=== PATIENT | male | born 1970 | race Caucasian/White ===

== ENCOUNTER 2019-07-12 08:05 | Emergency (ER) | payer OTHER, SELFPAY ==
[2019-07-12 08:07] VITALS: BP 156/89; PULSE 107; RESP 17; TEMP 36.7; O2SAT 100; BMI 28.7
[2019-07-12 08:14] VITALS: BP 132/88; PULSE 100; RESP 18; O2SAT 100
--- NOTE | 2019-07-12 08:24 | EKG12_ITS ---
Test Reason : PALPS/SOB Blood Pressure : / mmHG Vent. Rate : 093 BPM Atrial Rate : 093 BPM P-R Int : 158 ms QRS Dur : 094 ms QT Int : 348 ms P-R-T Axes : 022 037 018 degrees QTc Int : 432 ms Normal sinus rhythm Normal ECG Confirmed by RASHI MEDINA MD ([id number]), art editor CHRISTOPHE VALDEZ ([id number] on 07/13/2019 1:38:06 PM Referred By: RACHID Confirmed By:RASHI MEDINA MD
--- NOTE | 2019-07-12 08:25 | ED.VIS.GEN ---
History of Present Illness Chief Complaint: Palpitations Informant: Patient Onset: Today Context: Sudden Onset Timing: Intermittent Narrative: Patient is a 49-year-old male with no significant past medical history presenting with palpitations. Patient states he was at a job site walking up 3 flights of stairs when he suddenly felt his heart was racing. He denies any associated nausea, diaphoresis or shortness of breath. He denies any associated chest pain. The symptoms did not ease so patient sided drive home. While he was driving he started having palpitations again. This concerned him so he came to the emergency room. He notes the palpitations worsen with exertion and seem to worsen when he was walking from the parking lot to the ER as well. They currently have subsided. Patient notes that he has had intermittent palpitations over the past year. Is been managed by cutting out his caffeine intake. Patient not heavy caffeine last night. He does have a family history of coronary artery disease but he denies any personal history. He denies any history of hypertension or arrhythmia. He states he saw his primary care doctor a year ago and had blood work was told everything was normal. Patient does smoke a pack and 1/2 to 2 packs of cigarettes per day. He drinks 5-6 light beers a day. He said no recent change in any of this. He denies any fever, chills or any other associated symptoms. Prior similar symptoms: Yes Past Medical History - Allergies and Home Meds Allergies/Adverse Reactions: Allergies cephalexin [From Keflex] Allergy (Verified 07/12/19 08:07) Anaphylaxis Primary Care Physician: Luis A Onofre MD [STAFF PHYSICIAN] - Lexis Velasquez MD [[facility]] - Past Medical History: None Surgical History: noncontributory Smoking Status: Current every day smoker Alcohol: Heavy - 5-6 beers a day Drugs: None Review of Systems General: Denies: Chills, Fever, Sweats Eyes: Denies: Visual changes - bilaterally, Diplopia ENT: Denies: Rhinorrhea, Sore throat Cardiovascular: Reports: Palpitations, Heart racing. Denies: Chest pain Respiratory: Denies: Dyspnea, Cough, Dyspnea on exertion Gastrointestinal: Denies: Abdominal pain, Nausea, Vomiting, Diarrhea, Melena, Hematochezia Genitourinary: Denies: Dysuria, Hematuria, Frequency Musculoskeletal: Denies: Back pain, Extremity Pain Skin: Denies: Rash, Wounds Neurological: Denies: Headache, Weakness, Numbness Physical Exam Vital Signs/Narrative: Vital Signs Temp Pulse Resp BP Pulse Ox 07/12/19 08:14 100 18 132/88 H 100 07/12/19 08:07 98.1 F 107 H 17 156/89 H 100 Inital Vital Signs reviewed: Yes General: Well nourished, Well developed, No Acute Distress Head: Normocephalic, Atraumatic Eyes: Perrl, EOMI ENT: Moist mucous membranes, No rhinorrhea Neck: Supple, Nontender, No JVD Cardiovascular: Regular rhythm, No murmurs, Tachycardia Respiratory: No distress, CTA bilaterally, Chest nontender Abdomen: Soft, Nontender, Nondistended, Normal bowel sounds Back: Nontender, Normal Inspection Extremities: Nontender, No edema Skin: Normal color, No rash Neurological: Alert, Oriented x3, Cranial nerves II-XII grossly intact, Normal Strength, Normal Sensation Psychological: Normal affect, Normal Mood Diagnostic/Tx/Re-eval Chest X-Ray - ED: 2 View, Read by ED Physician, Read by Radiologist, No Acute Disease Clinical Impression(s) from Imaging Studies Chest X-Ray 07/12/19 08:35 IMPRESSION: Normal x-ray examination of the chest. Electronically Signed: Justin Arana, at 8:48 EDT , Service support , Laboratory Data 07/12/19 07/12/19 07/12/19 08:20 08:20 08:20 WBC 12.0 H RBC 4.75 Hgb 15.6 Hct 44.9 MCV 94.5 H MCH 32.8 H MCHC 34.7 RDW Std Deviation 43.9 RDW Coeff of Hazel 12.7 Plt Count 221 MPV 9.4 Immature Gran % (Auto) 0.500 Neut % (Auto) 74.3 H Lymph % (Auto) 16.3 L [place] % (Auto) 6.1 Eos % (Auto) 2.2 Baso % (Auto) 0.6 Absolute Neuts (auto) 8.9 H Absolute Lymphs (auto) 1.96 Nucleated RBC % 0 PT 12.7 INR 1.0 D-Dimer Quant (PE/DVT) <= 0.27 Sodium 142 Potassium 3.5 Chloride 106 Carbon Dioxide 30.0 Anion Gap 6 BUN 11 Creatinine 0.76 Estim Creat Clear Calc 118.73 Est GFR (MDRD) Af Amer 139 Est GFR (MDRD) Non-Af 115 BUN/Creatinine Ratio 14.5 Glucose 92 Calcium 8.8 Total Bilirubin 0.60 AST 18 ALT 25 Alkaline Phosphatase 94 Troponin I < 0.015 Total Protein 6.9 Albumin 3.8 Globulin 3.1 Albumin/Globulin Ratio 1.2 TSH 0.41 - Rhythm Strip Rhythm Strip: Sinus Rhythm Rate: 93 Ectopy: None - EKG Initial EKG Interpretation: Sinus Rhythm, - - Sinus rhythm at a rate of 93 Normal axis Normal intervals Normal ST segments Prior: No Prior - Medical Decision Making Evaluate for palpitations. While he is in the ER he does not have any arrhythmia. His EKG is sinus rhythm. He is relatively asymptomatic in the emergency room. He does not have any associated chest pain. I do not suspect ACS with the symptom of palpitations alone. EKG is unremarkable. Troponin is normal. Patient is low risk for PE. His d-dimer is essentially negative. I do not think a CTA is indicated at this time. Chest x-ray does not show any acute cardiopulmonary process. TSH, CBC and CMP are also unremarkable. Patient notes that he does drink 5-6 beers a night. Alcohol could play a role in his palpitations. In addition he notes he is actually had some palpitations over the last year but they had subsided significantly with abstaining from caffeine. I did discuss the case with cardiology on-call, Dr. Onofre, who was agreeable with a 48-hour Holter monitor and wanted to start him on Toprol-XL 25 mg. He will follow-up in the office. Patient also given PCP referral but states that he went to follow-up with a PCP closer to [place] where he lives. He is amenable to following up with cardiology in [place]. This patient is asymptomatic with normal vital signs and a normal work-up I do think he is stable for outpatient follow-up. Patient is counseled on signs and symptoms requiring return to the emergency room. Patient verbalizes agreement and understand this plan. Patient discharged home in stable and improved condition. ED Disposition - Plan for ED Patient: Disposition: Home or Assisted Living Diagnosis: Heart palpitations Instructions: ED Palpitations Prescriptions: Metoprolol Succinate [Toprol Xl] 25 mg PO DAILY #30 tab.er.24h Prescription Printed Referrals: Luis A Onofre MD [STAFF PHYSICIAN] - Lexis Velasquez MD [[facility]] - Additional Instructions: The exact cause of your palpitations not clear. Your work-up was normal today. Please return your Holter monitor in 48 hours as instructed. Please follow-up with cardiology, Dr. Onofre.
--- NOTE | 2019-07-12 08:28 | NURSING ---
NO OLD EKGS
[2019-07-12 08:33] LABS: Absolute Lymphocyte Count 1.96 X10^3/uL (0.83-4.51); Absolute Neutrophil Count 8.9 X10^3/uL (2.0-7.7); Basophil# 0.07 X10^3/uL; Basophil% 0.6 % (0-1); Eosinophil# 0.26 X10^3/uL; Eosinophils% 2.2 % (0-5); Hematocrit 44.9 % (40-54); Hemoglobin 15.6 g/dL (13.0-16.5); Lymphocyte # 1.96 X10^3/ul (4.0); Lymphocyte % 16.3 % (19-41); Mean Corp Hgb Conc 34.7 g/dL (32-36); Mean Corpuscular Hgb 32.8 pg (27.0-32.0); Mean Corpuscular Volume 94.5 fL (80-94); Mean Platelet Vol. 9.4 fl (6.2-12.0); Monocyte# 0.73 X10^3/uL; Monocyte% 6.1 % (0-10); NRBC Flagged by Analyzer 0 % (0-5); Neutrophil # 8.92 X10^3/uL (2.7-7.7); Neutrophil % 74.3 % (47-70); Platelet Count 221 K/mm3 (150-450); RBC Distribution Width CV 12.7 % (11.6-14.6); RBC Distribution Width SD 43.9 fl (35.1-43.9); Red Blood Count 4.75 M/mm3 (4.6-6.2)
[2019-07-12] MEDS: 0.9% Normal Saline 1,000 ML 1000 ML IV (08:34)
--- NOTE | 2019-07-12 08:35 | RAD_ITS ---
STUDY: X-RAY CHEST REASON FOR EXAM: Male, 49 years old. Palpitations, SOB with exertion TECHNIQUE: PA and lateral views of the chest. COMPARISON: None. FINDINGS: EKG electrodes are seen. The lungs are clear and expanded. There is no demonstrated pleural abnormality. Normal size heart. Normal mediastinum and azeb. Normal visualized pulmonary arteries. There is atherosclerotic tortuosity of the aortic arch and descending thoracic aorta. There are diffuse degenerative changes of the visualized thoracic spine. Normal visualized ribs, clavicles, and shoulders. There is no demonstrated abnormality of the visualized soft tissue structures of the upper abdomen. RAD/Chest PA and Lateral IMPRESSION: Normal x-ray examination of the chest. Electronically Signed: Justin Arana, at 8:48 EDT , Service support ,
[2019-07-12 08:45] LABS: Prothrombin Time (Protime)PT. 12.7 SECONDS (11.7-14.9)
[2019-07-12 08:53] LABS: D-Dimer Quantitative (DVT/PE) <= 0.27 FEU/ug/m (0.27-0.49)
[2019-07-12 08:57] LABS: ALB/GLOB Ratio 1.2 RATIO (0.9-2.4); AST(SGOT) 18 U/L (15-37); Alanine Aminotransfer ALT/SGPT 25 U/L (16-61); Albumin, Serum 3.8 g/dL (3.2-5.0); Alkaline Phosphatase 94 U/L (45-117); Anion Gap 6 (5-15); BUN 11 mg/dL (7-18); BUN/Creat Ratio 14.5 RATIO (10-20); Calcium,Total 8.8 mg/dL (8.5-10.1); Chloride 106 mmol/L (98-107); Creatinine, Serum 0.76 mg/dL (0.70-1.30); EST Glomerular Filtration Rate 115 mL/min (>60); Est Glom Filt Rate - Afr Amer 139 mL/min (>60); Estimated Creatinine Clearance 118.73 ml/min; Globulin 3.1 g/dL (2.2-4.2); Glucose 92 mg/dL (74-106); Potassium 3.5 mmol/L (3.5-5.1); Protein, Total 6.9 g/dL (6.4-8.2); Sodium Level 142 mmol/L (136-145); Thyroid Stim Hormone (TSH) 0.41 uIU/mL (0.358-3.74)
[2019-07-12 10:10] VITALS: BP 128/87; PULSE 75; RESP 10; O2SAT 99
== END 2019-07-12 10:42 | disposition home or self-care (01) ==
PROVIDERS: Emergency Provider Emergency Medicine
DX: R00.2 Palpitations (principal); F17.210 Nicotine dependence, cigarettes, uncomplicated; Z82.49 Family history of ischemic heart disease and other diseases of the circulatory system; Z88.1 Allergy status to other antibiotic agents
CPT/HCPCS: 71046; 80053; 84443; 84484; 85025; 85379; 85610; 93005; 96360; 99284; J7030; A4216

== ENCOUNTER → 2019-07-12 10:23 | Outpatient (CLI) | payer SELFPAY ==
[2019-07-12 08:07] VITALS: BMI 28.7
== END ==
LOC: CVS 10:24
PROVIDERS: Referring Provider Emergency Medicine; Visit Provider Emergency Medicine
DX: R00.2 Palpitations (principal)
CPT/HCPCS: 93225; 93226

== ENCOUNTER → 2019-10-04 08:29 | Outpatient (CLI) | payer SELFPAY ==
[2019-07-18 10:48] VITALS: BMI 28.3
--- NOTE | 2019-10-04 08:31 | ECHOCS_ITS ---
Reason For Study: ARRHYTHMIA Procedure This was a 2D Doppler, Color Flow transthoracic echocardiogram. The study was technically difficult. Contrast injection was performed. Exam performed in department. Left Ventricle Normal size and thickness. The estimated ejection fraction is 50-55 %. Stage 1 diastolic dysfunction. There is mild global hypokinesis of the left ventricle. Right Ventricle Normal size and thickness. Normal systolic function. Atria Normal left atrium. Normal right atrium. Normal atrial septum. Mitral Valve The mitral valve is structurally normal. No prolapse or stenosis seen. Tricuspid Valve Normal tricuspid valve. Trivial tricuspid valve insufficiency. Right ventricular systolic pressure estimated to be 29 mmHg. Aortic Valve Normal aortic valve. Trisinus/trileaflet aortic valve. Pulmonic Valve Normal pulmonic valve. Great Vessels Normal aortic root. Normal arch. Normal inferior vena cava. Inferior vena cava collapse with sniff. Pericardium/Pleural No pericardial effusion. Medication 22 gauge I.V. with prn adaptor inserted into right arm. Diluted definity 7.0ml given slow IV push to enhance endocardial definition. MMode/2D Measurements & Calculations LVIDd: 4.8 cm IVSd: 1.0 cm Ao root diam: 3.8 cm LVIDs: 3.3 cm LVPWd: 1.0 cm RVDd: 3.3 cm FS: 31.5 % LAV(MOD-bp): 62.6 ml EDV(MOD-sp4): 168.0 ml EDV(MOD-sp2): 79.5 ml LAV(MOD-bp) Indexed: 30.2 ml/m2 ESV(MOD-sp4): 82.2 ml EF(MOD-sp2): 37.5 % LAV(MOD-sp2): 62.5 ml EF(MOD-sp4): 51.1 % LAV(MOD-sp4): 59.5 ml SV(MOD-sp4): 85.8 ml SV(MOD-sp2): 29.8 ml LA A4 area: 20.4 cm2 LA dimension(2D): 3.7 cm RA A4 area: 12.5 cm2 Time Measurements MV dec time: 0.24 sec Doppler Measurements & Calculations MV E max randal: 72.2 cm/sec Lat Peak E' Randal: 11.6 cm/sec Med Peak E' Randal: 6.7 cm/sec MV A max randal: 76.1 cm/sec E/E' lat: 6.2 E/E' med: 10.8 MV E/A: 0.95 Ao V2 max: 125.9 cm/sec LV V1 max: 112.0 cm/sec PA V2 max: 92.8 cm/sec Ao max P.3 mmHg LV V1 max P.0 mmHg TR max randal: 303.5 cm/sec TR max P.8 mmHg Interpretation Summary The estimated ejection fraction is 50-55 %. Stage 1 diastolic dysfunction. There is mild global hypokinesis of the left ventricle. Trivial tricuspid valve insufficiency. Right ventricular systolic pressure estimated to be 29 mmHg. The study was technically difficult. Contrast injection was performed. There is no comparison study available. Ordering Physician: Luis A Onofre Referring Physician: Luis A Onofre Performed By: Deisi Dowling, JONATHAN, RVT
== END ==
PROVIDERS: Referring Provider Internal Medicine Cardiovascular Disease; Visit Provider Internal Medicine Cardiovascular Disease
DX: I47.2 Ventricular tachycardia (principal); R00.2 Palpitations; R00.0 Tachycardia, unspecified; Z82.49 Family history of ischemic heart disease and other diseases of the circulatory system
CPT/HCPCS: 93306; Q9957; A4216; C8929